=== PATIENT | male | born 1990 | race Caucasian/White ===

== ENCOUNTER 2021-05-12 05:30 | Emergency (ER) | payer OTHER ==
[~2021-05-12] VITALS: Ht 175.3 cm; Wt 65.8 kg
--- NOTE | 2021-05-12 07:02 | NUR ---
COLOSTOMY BAG PROVIDED PER PT REQUEST
--- NOTE | 2021-05-12 07:02 | NUR ---
Patient given written and verbal discharge instructions. Patient verbalizes understanding of instructions. Patient is ambulatory with steady gait. Refuses offer of senior living placement. Patient given list of available shelters in surrounding area. pt goes not to sign homeless discharge waiver.
[2021-05-12 07:06] VITALS: BP 104/58
== END 2021-05-12 07:07 | disposition home or self-care (01) ==
LOC: ER 05:32
DX: R10.9 Unspecified abdominal pain (principal); Z93.3 Colostomy status

== ENCOUNTER 2021-05-22 17:21 | Emergency (ER) | payer OTHER ==
[~2021-05-22] VITALS: Ht 175.3 cm; Wt 63.5 kg
[2021-05-22 17:53] VITALS: BP 116/69
--- NOTE | 2021-05-22 20:58 | NUR ---
COLOSTOMY CARE PROVIDED. PT VERBALIZED THAT HE DOES NOT KNOW HOW TO CHANGE HIS OWN COLOSTOMY
--- NOTE | 2021-05-22 20:59 | NUR ---
Patient discharged to home in stable condition. Written and verbal after care instructions given. Patient verbalizes understanding of instruction. Pt ambulatory with a steady gait
== END 2021-05-22 21:00 | disposition home or self-care (01) ==
LOC: ER 17:26
DX: Z43.3 Encounter for attention to colostomy (principal)
CPT/HCPCS: 99281; A4362

== ENCOUNTER 2021-06-03 02:41 | Emergency (ER) | payer OTHER ==
[~2021-06-03] VITALS: Ht 175.3 cm; Wt 66.2 kg
[2021-06-03 04:00] VITALS: BP 124/72
== END 2021-06-03 04:57 | disposition home or self-care (01) ==
LOC: ER 02:45
DX: Z43.3 Encounter for attention to colostomy (principal); Z90.49 Acquired absence of other specified parts of digestive tract

== ENCOUNTER 2021-06-05 14:27 | Emergency (ER) | payer OTHER ==
[~2021-06-05] VITALS: Ht 175.3 cm; Wt 65.8 kg
[2021-06-05 15:00] VITALS: BP 118/68
--- NOTE | 2021-06-05 15:05 | NUR ---
BIB SELF FOR COLOSTOMY CHANGE. THE PATIENT IS ALERT AND ORIENTED X4. ABDOMEN SOFT AND NON-DISTENDED. WILL CONTINUE TO MONITOR THE PATIENT.
--- NOTE | 2021-06-05 16:00 | NUR ---
COLOSTOMY BAG IS CHANGED. STOME IS PINK AND MOIST.
--- NOTE | 2021-06-05 16:04 | NUR ---
Patient discharged to home in stable condition. Written and verbal after care instructions given. Patient verbalizes understanding of instruction.
== END 2021-06-05 16:05 | disposition home or self-care (01) ==
LOC: ER 14:30
DX: Z43.3 Encounter for attention to colostomy (principal); Z90.89 Acquired absence of other organs; Z60.2 Problems related to living alone